=== PATIENT | male | born 1955 | race Caucasian/White ===

== ENCOUNTER 2021-06-26 05:14 | Observation (INO) ==
[2021-06-26 05:30] VITALS: BMI 34.2
[2021-06-26] MEDS ORDERED: ZOFRAN INJ 4 MG VIAL IVP ONE (05:50)
[2021-06-26] MEDS ORDERED: APRESOLINE INJ 20 MG VIAL IVP ONE (05:50)
[2021-06-26] MEDS ORDERED: NS 1,000 ML IV 1,000 ML IV STA (05:50)
[2021-06-26] MEDS ORDERED: CATAPRES TAB 0.1 MG PO ONE (05:50)
[2021-06-26] MEDS ORDERED: MORPHINE SULFATE INJ 4 MG IVP ONE (05:50)
--- NOTE | 2021-06-26 05:51 | DR.HTN ---
HPI Time Seen Time Seen by Provider: 06/26/21 05:47 Primary Care Physician Primary Care Physician: Dionicio Felton HPI Comment HPI Comment: PATIENT WITH A HISTORY OF TYPE 2 DIABETES, HYPERTENSION, CVA, COMPLAINS OF SEVERE HEADACHE SINCE 11PM LAST NIGHT. ADMITS TO BEING NONCOMPLAINT WITH HIS HYPERTENSIVE AND DIABETIC MEDICATIONS FOR MONTHS. HAS POLYDIPSIA AND POLYURIA. DENIES GAIT DISTURBANCE, SLURRED SPEECH, BLURRED VISION. ADMITS TO HAVE HAD EPISODES OF SLURRED SPEECH AND DYSARTHRIA PAST FEW YEARS. Complaints Chief Complaint Doctors Comments: HEADACHE Chief Complaint:: Headache, high blood pressure, pt admits to only taking his BP medication every now and then because it makes him feel bad. Reviewed Nurses Notes Reviewed: Yes Source History Provided: Patient Mode of Arrival Mode of Arrival: Ambulatory Timing Onset of Chief Complaint: 06/25/21 Severity Severity: Severe Context Circumstances: Spontaneous Onset and Ran out of Medication (NONCOMPLIANT WITH ALL MEDICATIONS.) History of: Hypertension Treatment of HTN Prior to Arrival: Noncompliant Associated Signs and Symptoms HTN Associated Signs and Symptoms: Headache Other History Other History: HISTORY OF CVA AND TIA'S IN THE PAST PMH PMH Past Medical History: Yes Past Medical History: Diabetes and Hypertension Past Surgical History: Yes Surgical History: Ortho Surgery Past Surgical History Comment: Rt shoulder, hernia Family History History of Family Medical Conditions: Yes Family Medical History: Diabetes Mellitus and DC Social History Alcohol Use: None Do you use any recreational Drugs:: No Lives Where: Home Infectious screening Have you traveled outside the country in the last 6 months?: No Isolation: Standard ROS Review of Systems Constitutional: No Symptoms Reported Eyes: No Symptoms Reported ENTM: No Symptoms Reported Respiratoy: No Symptoms Reported Cardiovascular: No Symptoms Reported Gastrointestinal/Abdominal: No Symptoms Reported Genitourinary: No Symptoms Reported Neurological: Headache Musculoskeletal: No Symptoms Reported Integumentary: No Symptoms Reported Hematologic/Lymphatic: No Symptoms Reported Endocrine: No Symptoms Reported Psychiatric: No Symptoms Reported All Other Systems: Reviewed and Negative PE Vital Signs Vitals: Temperature 97.4 F Pulse Rate 80 Respiratory Rate 18 Blood Pressure [Left Arm] 127/65 Blood Pressure 163/77 O2 Sat by Pulse Oximetry 95 General General Appearance: Alert, In No Apparent Distress and Anxious Head Head Exam: Normal Inspection and Atraumatic Eyes Eye exam: Normal Appearance, PERRL and EOMI Pupils: Regular, Round: Bilateral Sclera/Conjunctival: Normal Inspection: Bilateral ENT ENT Exam: Normal Exam Neck Neck Exam: Normal Inspection Chest Chest Inspection: Normal Inspection Respiratory Respiratory Exam: Bilateral: Clear to Auscultation Cardiovascular Cardiovascular Exam: Regular Rate and Normal Rhythm Abdominal Exam Abdominal Exam: Normal Inspection and Normal Bowel Sounds Extremities Extremities Exam: Normal Inspection and Full ROM Back Back Exam: Normal Inspection Neurologic Neurological Exam: Alert, Oriented X3 and CN II-XII Intact Patient Oriented To: Person, Place and Time Cranial Nerve Exam: EOM Function (II, III, IV, ): Normal Cerebellar Function: Normal Gait Motor Strength - LUE: 5/5 Motor Strength - RUE: 5/5 Motor Strength - LLE: 5/5 Motor Strength - RLE: 5/5 Psychiatric Psychiatric Exam: Normal Affect and Normal Mood Skin Skin Exam: Warm and Dry MDM Differential Diagnosis Differential Diagnosis: Hypertensive emergency and HTN encephalopathy Differential Diagnosis Comment: CVA, TIA, HYPERGLYCEMIA COURSE Treatment Treatment: IV NORMAL SALINE 250ML/HR, HYDRALAZINE 20MG IV, CLONIDINE 0.1MG ORALLY, ZOFRAN 4MG. MORPHINE 4MG IV, Reevaluation 1st: Improved (BLOOD PRESSURS IMPROVED TO BP 163/77) Consultation Call Returned: 07:00 Consultation Comments: DISCUSSED FINDINGS WITH DR REBOLLAR FOR OBSERVATION TO ICU ROR Labs Reviewed Laboratory Results Reviewed?: Yes Result Diagrams: 06/26/21 06:00 06/26/21 06:00 Laboratory: WBC 6.1 X10^3/uL (3.6-10.0) 06/26/21 06:00 RBC 4.92 X10^6/uL (4.7-6.0) 06/26/21 06:00 Hgb 15.3 g/dL (13.5-18.0) 06/26/21 06:00 Hct 43.4 % (42.0-54.0) 06/26/21 06:00 MCV 88.3 fL (80.0-100.0) 06/26/21 06:00 MCH 31.0 pg (27.0-34.0) 06/26/21 06:00 MCHC 35.1 g/dL (33.0-35.0) H 06/26/21 06:00 RDW 12.6 % (11.6-16.5) 06/26/21 06:00 Plt Count 182 X10^3/uL (150.0-450.0) 06/26/21 06:00 MPV 9.5 fL (7.4-11.0) 06/26/21 06:00 Neut % (Auto) 73.3 % (42.0-75.0) 06/26/21 06:00 Lymph % (Auto) 16.8 % (21.0-51.0) L 06/26/21 06:00 [place] % (Auto) 7.1 % (0.0-13.0) 06/26/21 06:00 Eos % (Auto) 1.7 % (0.9-2.9) 06/26/21 06:00 Baso % (Auto) 1.1 % (0.2-1.0) H 06/26/21 06:00 Neut # (Auto) 4.5 x10^3/uL (2.2-4.8) 06/26/21 06:00 Lymph # (Auto) 1.0 X10^3/uL (1.3-2.9) L 06/26/21 06:00 [place]s # (Auto) 0.4 x10^3/uL (0.3-0.8) 06/26/21 06:00 Eos # (Auto) 0.1 x10^3/uL (0.0-0.2) 06/26/21 06:00 Baso # (Auto) 0.1 X10^3/uL (0.0-0.1) 06/26/21 06:00 Absolute Nucleated RBC 0.1 /100WBC 06/26/21 06:00 PT 13.3 SECONDS (11.8-14.3) 06/26/21 06:00 INR Target Range - 06/26/21 06:00 INR 1.07 (0.8-1.3) 06/26/21 06:00 Sodium 130 mmol/L (136-145) L 06/26/21 06:00 Corrected Sodium 137 mmol/L (136-145) 06/26/21 06:00 Potassium 4.1 mmol/L (3.5-5.1) 06/26/21 06:00 Chloride 96 mmol/L (98-107) L 06/26/21 06:00 Carbon Dioxide 25.2 mmol/L (21-32) 06/26/21 06:00 BUN 17 mg/dL (7-18) 06/26/21 06:00 Creatinine 0.96 mg/dL (0.70-1.30) 06/26/21 06:00 Est GFR (MDRD) Af Amer > 60 (>60) 06/26/21 06:00 Est GFR (MDRD) Non-Af > 60 (>60) 06/26/21 06:00 Glucose 410 mg/dL (65-99) H 06/26/21 06:00 POC Glucose (mg/dL) 423 mg/dL (65-99) H 06/26/21 05:53 Calcium 9.0 mg/dL (8.5-10.1) 06/26/21 06:00 Corrected Calcium TNP 06/26/21 06:00 Magnesium 2.0 mg/dL (1.7-2.9) 06/26/21 06:00 Total Bilirubin 0.60 mg/dL (0.2-1.0) 06/26/21 06:00 AST 32 Units/L (15-37) 06/26/21 06:00 ALT 84 Units/L (12-78) H 06/26/21 06:00 Alkaline Phosphatase 126 Units/L (46-116) H 06/26/21 06:00 Troponin I < 0.02 ng/mL (0-1.5) 06/26/21 06:00 Total Protein 7.2 g/dL (6.4-8.2) 06/26/21 06:00 Albumin 3.7 g/dL (3.4-5.0) 06/26/21 06:00 Globulin 3.5 g/dL (2.5-4.5) 06/26/21 06:00 Albumin/Globulin Ratio 1.1 Ratio (1.1-2.1) 06/26/21 06:00 Acetone, Semi-Quant Negative (NEGATIVE) 06/26/21 06:00 XRAY XRAY Interpreted by: Radiologist (HEAD CT WITHOUT INTRAVENOUS CONTRAST - NO ACUTE INTRACRANIAL PROCESS) X-ray Results: PORTABLE CHEST XRAY - NO ACUTE INTRAPULMONARY PAROCESS EKG Rate: 89 [place]: Normal Rhythm: NSR Hypertrophy: LAE ST: Nonsp Opioid Opioid Risk Tool Age (Oziel box if 16-45): No History of Preadolescent Sexual Abuse: No Total: 0 Total Score Risk Category: Low Risk Copyright: Omar SLOAN predicting aberrant behaviors Diagnosis Discharge Problem: Hypertensive emergency, Hyperglycemia, Headache
[2021-06-26] MEDS ORDERED: NS 1,000 ML IV 1,000 ML ONE (05:55)
[2021-06-26] MEDS ORDERED: ZOFRAN INJ 4 MG VIAL ONE (05:58)
[2021-06-26] MEDS ORDERED: MORPHINE SULFATE INJ 4 MG ONE (05:58)
[2021-06-26] MEDS ORDERED: CATAPRES TAB 0.1 MG ONE (05:58)
[2021-06-26] MEDS ORDERED: APRESOLINE INJ 20 MG VIAL ONE (05:58)
[2021-06-26 06:15] LABS: BASOPHILS # (AUTO) 0.1 X10^3/uL (0.0-0.1); BASOPHILS % (AUTO) 1.1 % (0.2-1.0); EOSINOPHILS # (AUTO) 0.1 x10^3/uL (0.0-0.2); EOSINOPHILS % (AUTO) 1.7 % (0.9-2.9); HEMATOCRIT 43.4 % (42.0-54.0); HEMOGLOBIN 15.3 g/dL (13.5-18.0); LYMPHOCYTES % (AUTO) 16.8 % (21.0-51.0); MEAN CORPUSCULAR HGB CONC 35.1 g/dL (33.0-35.0); MEAN CORPUSCULAR VOLUME 88.3 fL (80.0-100.0); MEAN PLATELET VOLUME 9.5 fL (7.4-11.0); MONOCYTES # (AUTO) 0.4 x10^3/uL (0.3-0.8); MONOCYTES % (AUTO) 7.1 % (0.0-13.0); NEUTROPHILS # (AUTO) 4.5 x10^3/uL (2.2-4.8); NEUTROPHILS % (AUTO) 73.3 % (42.0-75.0); PLATELET COUNT 182 X10^3/uL (150.0-450.0); RED BLOOD COUNT 4.92 X10^6/uL (4.7-6.0); RED CELL DISTRIBUTION WIDTH 12.6 % (11.6-16.5); WHITE BLOOD COUNT 6.1 X10^3/uL (3.6-10.0)
[2021-06-26] MEDS ORDERED: NovoLIN R (or HumuLIN R) IV STA (06:32)
--- NOTE | 2021-06-26 06:33 | CT ---
HISTORYPT C/O HASTUDYBRAIN W/O CONCOMPARISONCT brain report only available from 11/08/2018.TECHNIQUEMultiple axial images of the head were performed from the skullbase to the vertex using standard departmental protocol. Sagittal and coronal reformatted images were performed. Dose reduction techniques including Automated Exposure Control (AEC) and adjustment of mA and kV were utilized.FINDINGSThe lateral ventricles and basilar cisterns are patent.No parenchymal mass or hematoma. Franz-white differentiation appears acutely preserved. Mild low attenuation change in the subcortical and deep supratentorial white matter.No extra-axial collection.The globes are intact.No air fluid levels in the paranasal sinuses. No paranasal sinus wall thickening or sclerosis. Mastoid air cells are clear.The calvarium is intact.IMPRESSIONNo acute intracranial abnormality. Mild presumed small vessel disease.Electronically signed by: Blake Merrill (Jun 26, 2021 06:32:06)
[2021-06-26 06:40] LABS: SERUM ACETONE NEGATIVE (NEGATIVE)
--- NOTE | 2021-06-26 06:41 | RAD ---
HISTORYPT C/O DYSPNEA. STATES IT IS DUE TO NOT TAKING BP MEDICATIONSSTUDYCHEST, 1 [id number]/11/2021.TECHNIQUEAP view of the chestFINDINGSThe cardiac and mediastinal contours are within normal limits. Lung apices are not completely within the field of view. The lungs are clear without focal consolidation or segmental collapse. No pleural effusion or pneumothorax. Soft tissue attenuation limits evaluation.IMPRESSIONNo acute pulmonary process within the field of view.Electronically signed by: Blake Merrill (Jun 26, 2021 06:39:41)
[2021-06-26 06:42] LABS: ALANINE AMINOTRANSFERASE 84 Units/L (12-78); ALBUMIN 3.7 g/dL (3.4-5.0); ALKALINE PHOSPHATASE 126 Units/L (46-116); ASPARTATE AMINO TRANSFERASE 32 Units/L (15-37); BLOOD UREA NITROGEN 17 mg/dL (7-18); CARBON DIOXIDE 25.2 mmol/L (21-32); CHLORIDE 96 mmol/L (98-107); COR NA(FOR HYPERGLY) 137 mmol/L (136-145); CREATININE 0.96 mg/dL (0.70-1.30); SODIUM 130 mmol/L (136-145); TOTAL PROTEIN 7.2 g/dL (6.4-8.2); TROPONIN I < 0.02 ng/mL (0-1.5); eGFR NON BLACK RACES > 60 (>60)
[2021-06-26] MEDS ORDERED: NovoLIN R (or HumuLIN R) ONE (06:46)
[2021-06-26] MEDS ORDERED: FIORICET TAB PO STA (06:52)
[2021-06-26] MEDS ORDERED: FIORICET TAB PO ONE (06:56)
[2021-06-26 07:20] LABS: BILIRUBIN,URINE NEGATIVE (NEGATIVE); BLOOD/HEMOGLOBIN,URINE NEGATIVE (NEGATIVE); GLUCOSE, URINE 4+ (NEGATIVE); KETONES,URINE 2+ (NEGATIVE); LEUKOCYTE ESTERASE ,URINE NEGATIVE (NEGATIVE); NITRITES,URINE NEGATIVE (NEGATIVE); PROTEIN,URINE NEGATIVE (NEGATIVE); UROBILINOGEN,URINE NORMAL (NORMAL)
[2021-06-26 07:32] LABS: APPEARANCE,URINE CLEAR (CLEAR); COLOR,URINE YELLOW (YELLOW)
[2021-06-26] MEDS ORDERED: CATAPRES-TTS-1 TD SCH (09:35)
[2021-06-26] MEDS ORDERED: VASOTEC INJ 2.5 MG VIAL IVP PRN (09:35)
[2021-06-26] MEDS ORDERED: NS 1,000 ML IV 1,000 ML IV SCH (09:35)
[2021-06-26] MEDS ORDERED: TYLENOL 325 MG TAB PO PRN (09:35)
[2021-06-26] MEDS: NovoLIN R (or HumuLIN R) SC PRN ×3 (11:40→20:23)
[2021-06-26] MEDS ORDERED: ATIVAN TAB 0.5 MG PO PRN (18:58)
[2021-06-26] MEDS ORDERED: FIORICET TAB PO PRN (19:28)
[2021-06-26] MEDS ORDERED: ZOFRAN INJ 4 MG VIAL IVP PRN (20:28)
[2021-06-26] MEDS: NORCO 5/325 MG TAB PO PRN (21:48)
[2021-06-26] MEDS ORDERED: PHENERGAN INJ 25 MG IM PRN (22:36)
[2021-06-27] MEDS: NORCO 5/325 MG TAB PO PRN (04:06)
[2021-06-27] MEDS: NovoLIN R (or HumuLIN R) SC PRN (05:45)
[2021-06-27 05:51] LABS: BASOPHILS # (AUTO) 0.1 X10^3/uL (0.0-0.1); BASOPHILS % (AUTO) 0.9 % (0.2-1.0); EOSINOPHILS # (AUTO) 0.1 x10^3/uL (0.0-0.2); EOSINOPHILS % (AUTO) 0.7 % (0.9-2.9); HEMATOCRIT 40.8 % (42.0-54.0); HEMOGLOBIN 14.3 g/dL (13.5-18.0); LYMPHOCYTES # (AUTO) 1.5 X10^3/uL (1.3-2.9); LYMPHOCYTES % (AUTO) 19.2 % (21.0-51.0); MEAN CORPUSCULAR HGB CONC 34.9 g/dL (33.0-35.0); MEAN CORPUSCULAR VOLUME 88.8 fL (80.0-100.0); MEAN PLATELET VOLUME 10.1 fL (7.4-11.0); MONOCYTES # (AUTO) 0.6 x10^3/uL (0.3-0.8); MONOCYTES % (AUTO) 7.4 % (0.0-13.0); NEUTROPHILS # (AUTO) 5.6 x10^3/uL (2.2-4.8); NEUTROPHILS % (AUTO) 71.8 % (42.0-75.0); PLATELET COUNT 184 X10^3/uL (150.0-450.0); RED CELL DISTRIBUTION WIDTH 12.5 % (11.6-16.5); WHITE BLOOD COUNT 7.8 X10^3/uL (3.6-10.0)
[2021-06-27 05:56] LABS: HEMOGLOBIN A1C 11.9 %
[2021-06-27 06:07] LABS: ALANINE AMINOTRANSFERASE 80 Units/L (12-78); ALBUMIN 3.3 g/dL (3.4-5.0); ALKALINE PHOSPHATASE 76 Units/L (46-116); ASPARTATE AMINO TRANSFERASE 42 Units/L (15-37); BLOOD UREA NITROGEN 16 mg/dL (7-18); CALCIUM 8.2 mg/dL (8.5-10.1); CARBON DIOXIDE 26.2 mmol/L (21-32); CHLORIDE 100 mmol/L (98-107); COR CA(FOR HYPOALB) 8.8 mg/dL (8.5-10.1); COR NA(FOR HYPERGLY) 136 mmol/L (136-145); CREATININE 0.87 mg/dL (0.70-1.30); SODIUM 133 mmol/L (136-145); TOTAL PROTEIN 6.4 g/dL (6.4-8.2); eGFR NON BLACK RACES > 60 (>60)
--- NOTE | 2021-06-27 09:18 | DR.CARTERS ---
Short Stay Summary - Admission Date Date of Admission: 06/26/21 - Discharge Date Discharge Date: 06/27/21 - Admission Diagnoses (1) Hypertensive emergency Status: Acute (2) Hyperglycemia Status: Acute (3) Headache Status: Acute - Hospital Course Hospital Course: TIME SPENT ON CLINICAL ASSESSMENT, REVIEWING LABS AND IMAGING, DECISION MAKING, AND DOCUMENTATION GREATER THAN 75 MINUTES. IS A 66 YEAR OLD PATIENT OF [facility]. HE PRESENTED TO THE ER WITH COMPLAINTS OF SEVERE HEADACHE AND ELEVATED BLOOD PRESSURE. HE DOES HAVE A HISTORY OF HYPERTENSION, DM II, AND CVA, BUT REPORTED BEING NON-COMPLIANT WITH ALL OF HIS MEDICATIONS. HE REPORTED THAT HE USUALLY FEELS WORSE AND WEAK WHEN HE TAKES IT. HE ADMITTED TO POLYDIPSIA AND POLYURIA. HE DENIED GAIT DISTURBANCE, SLURRED SPEECH, BLURRED VISION. HE RATED HEADACHE A 7/10 AND DESCRIBED IT THROBBING. ON ARRIVAL TO THE ER, VITALS WERE 97.4-70-20-94%-201/91. LABS WERE OBTAINED. ABNORMAL LAB VALUES INCLUDED THE FOLLOWING: SODIUM 130, CHLORIDE 96, GLUCOSE 410, ALT 84, ALK PHOS 126. URINALYSIS WAS UNREMARKABLE. URINE ACETONES NEGATIVE. COVID, INFLUENZA, AND RSV NEGATIVE. A BRAIN CT WAS OBTAINED AND REVEALED: No acute intracranial abnormality. Mild presumed small vessel disease. CHEST XRAY WAS OBTAINED AND REVEALED: The cardiac and mediastinal contours are within normal limits. Lung apices are not completely within the field of view. The lungs are clear without focal consolidation or segmental collapse. No pleural effusion or pneumothorax. Soft tissue attenuation limits evaluation. EKG REVEALED: SINUS RHYTHM WITH HR 89. IN THE ER, HE WAS GIVEN APRESOLINE 20MG IV X 1, CATAPRES 0.1MG PO X 1, MORPHINE 4MG IV X 1, A 500ML NORMAL SALINE BOLUS, ZOFRAN 4MG IV X 1, HUMULIN R 5 UNITS IV X 1, FIORICET 1 TAB X 1. BLOOD PRESSURE DECREASED TO 131/62. HE WAS ADMITTED TO THE HOSPTIAL FOR FURTHER EVALUATION AND TREATMENT OF HYPERTENSIVE EMERGENCY, ACUTE CEPHALGIA, AND HYPERGLYCEMIA. HE WAS STARTED ON NORMAL SALINE AT KVO, FIORICET 1 TABLET Q6H PRN, NORCO 5/325MG PO Q6H PRN, CATAPRES 0.1MG TD PATCH, VASOTEC 1.25MG IV Q6H PRN, HUMULIN R SLIDING SCALE, ATIVAN 0.5MG PO BID PRN, ZOFRAN 4MG IV Q4H PRN, AND PHENERGAN 25MG IM Q6H PRN. OTHERWISE, WE PLANNED TO FOLLOW UP WITH AM LABS AND CONTINUE TO MONITOR. ON MORNING ROUNDS, PATIENT IS ALERT AND ORIENTED, SITTING UP IN BED ON MORNING ROUNDS. HE DENIES HEADACHE OR OTHER COMPLAINTS THIS MORNING. BLOOD PRESSURE HAS BEEN STABLE THROUGHOUT THE NIGHT. ON EXAMINATION, HEART IS REGULAR IN RATE AND RHYHTM. BILATERAL LUNGS ARE CLEAR TO AUSCULTATION. ABDOMEN IS ROUND, SOFT, AND NON-TENDER WITH NORMAL BOWEL SOUNDS NOTED IN ALL QUADRANTS. HIS VITALS THIS MORNING ARE: 98.4-62-10-95%-122/61. LABS WERE OBTAINED. ABNORMAL LAB VALUES INCLUDE THE FOLLOWING: RBC 4.60, HCT 40.8, SODIUM 130, CHLORIDE 96, GLUCOSE 410, ALT 84, ALK PHOS 126. WE PLANNED FOR DISCHARGE. INSTRUCTIONS FOR MEDICATIONS AND FOLLOW UP WERE DISCUSSED WITH PATIENT AND HIS SPOUSE. THEY BOTH VERBALIZED UNDERSTANDING. HE WAS GIVEN NEW PRESCRIPTIONS FOR ECOTRIN 325MG PO DAILY, CLONIDINE 0.1MG/HR TD PATCH WEEKLY, FARXIGA 5MG PO DAILY, LISINOPRIL 10MG PO HS, ROSUVASTATIN 10MG PO HS, AND INSTRUCTED TO CONTINUE HIS OTHER HOME MEDICATIONS. HE WAS INSTRUCTED TO FOLLOW UP WITH US IN TWO WEEKS. PATIENT DISCHARGED HOME WITH SPOUSE IN STABLE, IMPROVED CONDITION. TIME SPENT ON CLINICAL ASSESSMENT, REVIEWING LABS AND IMAGING, DECISION MAKING, DISCHARGE INSTRUCTIONS, PREPARING DISCHARGE PAPERS, AND DOCUMENTATION GREATER THAN 75 MINUTES. - Discharge Medications Discharge Medications: Home Medication List glimepiride 4 mg PO BID 06/26/21 [History] liraglutide [Victoza 3-Mauri] 1.8 mg SUBCUT DAILY 06/26/21 [History] lorazepam 0.5 mg PO BID PRN 06/26/21 [History] aspirin [Ecotrin] 325 mg PO QDAY #90 tab 06/27/21 [Rx] clonidine 1 ea TD Q7D #5 ea 06/27/21 [Rx] dapagliflozin [Farxiga] 5 mg PO QAM #30 tab 06/27/21 [Rx] lisinopril 10 mg PO HS #30 tab 06/27/21 [Rx] rosuvastatin 10 mg PO HS #30 tab 06/27/21 [Rx] Prescriptions: aspirin [Ecotrin] Jer Ramachandran clonidine Jer Ramachandran dapagliflozin [Farxiga] Jer Ramachandran lisinopril Jer Ramachandran rosuvastatin Jer Ramachandran - Discharge Plan Disposition: HOME, SELF-CARE Condition: Stable Prescriptions: aspirin [Ecotrin] 325 mg PO QDAY #90 tab clonidine 1 ea TD Q7D #5 ea dapagliflozin [Farxiga] 5 mg PO QAM #30 tab lisinopril 10 mg PO HS #30 tab rosuvastatin 10 mg PO HS #30 tab - Follow up/Referrals Follow up/Referrals: Jer Ramachandarn [STAFF PHYSICIAN] - 2 WEEKS - Instructions Forms: Excuse From Work or School, Precautions for COVID, [facility], Patient Portal, Social Distancing
[2021-06-27 10:16] VITALS: BP 131/63
== END 2021-06-27 10:35 | disposition home or self-care (01) ==
LOC: ER 05:19 → ICU 05:19
PROVIDERS: ADMIT Internal Medicine; ATTEND Internal Medicine
DX: E11.65 Type 2 diabetes mellitus with hyperglycemia; R51.9 Headache, unspecified; I16.0 Hypertensive urgency; Z20.822 Contact with and (suspected) exposure to COVID-19

== ENCOUNTER 2025-06-17 00:02 | Observation (INO) ==
--- NOTE | 2025-06-17 00:53 | DR.WEAKNES ---
HPI Time Seen Time Seen by Provider: 06/17/25 00:37 Primary Care Physician Primary Care Physician: Louise Olmstead HPI Comment HPI Comment: present for at least over 12 hrs which slowly became weaker with difficulty in raising his left leg and left arm brought in by family to ER for evaluation Complaints Chief Complaint Doctors Comments: left sided weakness Chief Complaint:: Pt ambulatory in ed with complaints of left sided weakness. states the weakness has been going on for a few weeks, but it worsened today. Noted weakness to LT ARM and LT LEG. Source History Provided: Patient and Family Member Mode of Arrival Mode of Arrival: Ambulatory Timing Onset of Chief Complaint: 06/16/25 Symptom Onset: Known Onset of Symptoms Start Date: 06/16/25 Onset of Symptoms Start Time: 09:30 Duration Duration: Since Onset Duration: Hours Context Symptoms: Weakness History of: CVA Stroke Symptoms: Weakness of limb and Numbness of limbs Location Weakness Location: Left and Sided Associated Signs and Symptoms Associated Signs and Symptoms: None PMH PMH Past Medical History: Yes Past Medical History: CVA, Diabetes and Hypertension Past Surgical History: Yes Surgical History: Abdominal Surgery and Ortho Surgery Past Surgical History Comment: hernia repair, shoulder Family History History of Family Medical Conditions: Yes Family Medical History: Diabetes Mellitus and Hypertension Social History Does any household member use tobacco: No Alcohol Use: None Do you use any recreational Drugs:: No Lives With: Spouse and Family Lives Where: Home Infectious screening In the last 2 months have you had wt loss of >10#?: NO Have you had fever, night sweats or hemotysis?: No Have you traveled outside the country in the last 6 months?: No Isolation: Standard ROS Review of Systems Constitutional: Weakness Eyes: No Symptoms Reported ENTM: No Symptoms Reported Respiratoy: No Symptoms Reported Cardiovascular: No Symptoms Reported Gastrointestinal/Abdominal: No Symptoms Reported Genitourinary: No Symptoms Reported Neurological: Weakness Integumentary: No Symptoms Reported Hematologic/Lymphatic: No Symptoms Reported Endocrine: No Symptoms Reported Psychiatric: No Symptoms Reported PE Vital Signs Vitals: Vital Signs Temperature 97.9 F Pulse Rate 53 Pulse Rate 50 Pulse Rate 51 Pulse Rate 51 Pulse Rate 53 Pulse Rate 56 Pulse Rate 55 Pulse Rate 53 Pulse Rate 58 Pulse Rate 59 Pulse Rate 58 Respiratory Rate 20 Respiratory Rate 11 Respiratory Rate 15 Respiratory Rate 16 Respiratory Rate 14 Respiratory Rate 29 Respiratory Rate 17 Respiratory Rate 17 Respiratory Rate 13 Respiratory Rate 16 Respiratory Rate 20 Blood Pressure 180/77 Blood Pressure 159/71 Blood Pressure 188/81 Blood Pressure 183/80 Blood Pressure 180/75 O2 Sat by Pulse Oximetry 96 O2 Sat by Pulse Oximetry 96 O2 Sat by Pulse Oximetry 95 O2 Sat by Pulse Oximetry 95 O2 Sat by Pulse Oximetry 96 O2 Sat by Pulse Oximetry 96 O2 Sat by Pulse Oximetry 96 O2 Sat by Pulse Oximetry 96 O2 Sat by Pulse Oximetry 95 O2 Sat by Pulse Oximetry 96 O2 Sat by Pulse Oximetry 96 General Limitations: No Limitations General Appearance: Alert and Anxious Head Head Exam: Normal Inspection, Atraumatic and Normocephalic Eyes Eye exam: Normal Appearance, PERRL and EOMI ENT ENT Exam: Normal Exam and Mucous Membranes Moist Mouth Exam: Normal Inspection Neck Neck Exam: Normal Inspection and Full ROM Chest Chest Inspection: Normal Inspection and Symmetric Chest Wall Rise Respiratory Respiratory Exam: Bilateral: Clear to Auscultation Cardiovascular Cardiovascular Exam: +S1 and +S2 Abdominal Exam Abdominal Exam: Normal Inspection, Normal Bowel Sounds and Soft Other Exam Other Exam: left upper and lower ext weakness COURSE Treatment Treatment: CVA with left hemiparesis,teleneurology ROR Labs Reviewed 06/17/25 00:38 06/17/25 00:38 Laboratory: WBC 6.2 X10^3/uL (3.6-10.0) 06/17/25 00:38 RBC 4.75 X10^6/uL (4.7-6.0) 06/17/25 00:38 Hgb 14.7 g/dL (13.5-18.0) 06/17/25 00:38 Hct 43.1 % (42.0-54.0) 06/17/25 00:38 MCV 90.7 fL (80.0-100.0) 06/17/25 00:38 MCH 30.9 pg (27.0-34.0) 06/17/25 00:38 MCHC 34.1 g/dL (33.0-35.0) 06/17/25 00:38 RDW 13.2 % (11.6-16.5) 06/17/25 00:38 Plt Count 167 X10^3/uL (150.0-450.0) 06/17/25 00:38 MPV 9.9 fL (7.4-11.0) 06/17/25 00:38 Neut % (Auto) 54.6 % (42.0-75.0) 06/17/25 00:38 Lymph % (Auto) 31.8 % (21.0-51.0) 06/17/25 00:38 Esmeralda % (Auto) 10.8 % (0.0-13.0) 06/17/25 00:38 Eos % (Auto) 2.1 % (0.9-2.9) 06/17/25 00:38 Baso % (Auto) 0.7 % (0.2-1.0) 06/17/25 00:38 Neut # (Auto) 3.4 x10^3/uL (2.2-4.8) 06/17/25 00:38 Lymph # (Auto) 2.0 X10^3/uL (1.3-2.9) 06/17/25 00:38 Esmeralda # (Auto) 0.7 x10^3/uL (0.3-0.8) 06/17/25 00:38 Eos # (Auto) 0.1 x10^3/uL (0.0-0.2) 06/17/25 00:38 Baso # (Auto) 0.0 X10^3/uL (0.0-0.1) 06/17/25 00:38 Absolute Nucleated RBC 0.3 /100WBC 06/17/25 00:38 PT 13.3 SECONDS (11.8-14.3) 06/17/25 00:38 INR Target Range - 06/17/25 00:38 INR 1.00 (0.8-1.3) 06/17/25 00:38 APTT 31.2 SECONDS (22.9-36.5) 06/17/25 00:38 PTT Comment - 06/17/25 00:38 Fibrinogen 314 mg/dL (239-489) 06/17/25 00:38 Sodium 143 mmol/L (136-145) 06/17/25 00:38 Corrected Sodium 146 mmol/L (136-145) H 06/17/25 00:38 Potassium 4.1 mmol/L (3.5-5.1) 06/17/25 00:38 Chloride 106 mmol/L (98-107) 06/17/25 00:38 Carbon Dioxide 27.7 mmol/L (21-32) 06/17/25 00:38 BUN 19 mg/dL (7-18) H 06/17/25 00:38 Creatinine 1.12 mg/dL (0.70-1.30) 06/17/25 00:38 Est GFR (MDRD) Af Amer > 60 (>60) 06/17/25 00:38 Est GFR (MDRD) Non-Af > 60 (>60) 06/17/25 00:38 Glucose 234 mg/dL (65-99) H 06/17/25 00:38 POC Glucose (mg/dL) 250 mg/dL (65-99) H 06/17/25 00:17 Calcium 8.9 mg/dL (8.5-10.1) 06/17/25 00:38 Corrected Calcium TNP 06/17/25 00:38 Total Bilirubin 0.50 mg/dL (0.2-1.0) 06/17/25 00:38 AST 16 Units/L (15-37) 06/17/25 00:38 ALT 24 Units/L (12-78) 06/17/25 00:38 Alkaline Phosphatase 80 Units/L (46-116) 06/17/25 00:38 Creatine Kinase 150 Units/L (39-308) 06/17/25 00:38 Troponin I High Sens 10.6 ng/L (4.0-60.0) 06/17/25 00:38 Total Protein 6.7 g/dL (6.4-8.2) 06/17/25 00:38 Albumin 3.7 g/dL (3.4-5.0) 06/17/25 00:38 Globulin 3.0 g/dL (2.5-4.5) 06/17/25 00:38 Albumin/Globulin Ratio 1.2 Ratio (1.1-2.1) 06/17/25 00:38 Triglycerides 149 mg/dL (0-150) 06/17/25 00:38 Cholesterol 119 mg/dL (0-200) 06/17/25 00:38 LDL Cholesterol, Calc 45 mg/dL (0-100) 06/17/25 00:38 HDL Cholesterol 44 mg/dL (40-60) 06/17/25 00:38 Cholesterol/HDL Ratio 2.7 (0.0-5.0) 06/17/25 00:38 Specimen Type Clean catch urine 06/17/25 02:10 Urine Color Pale yellow (YELLOW) 06/17/25 02:10 Urine Appearance Clear (CLEAR) 06/17/25 02:10 Urine pH 5.0 (5.0 - 8.0) 06/17/25 02:10 Ur Specific [place] 1.015 (1.000-1.030) 06/17/25 02:10 Urine Protein 1+ (NEGATIVE) 06/17/25 02:10 Urine Glucose (UA) 4+ (NEGATIVE) 06/17/25 02:10 Urine Ketones Negative (NEGATIVE) 06/17/25 02:10 Urine Blood Negative (NEGATIVE) 06/17/25 02:10 Urine Nitrite Negative (NEGATIVE) 06/17/25 02:10 Urine Bilirubin Negative (NEGATIVE) 06/17/25 02:10 Urine Urobilinogen Normal (NORMAL) 06/17/25 02:10 Ur Leukocyte Esterase Negative (NEGATIVE) 06/17/25 02:10 Urine RBC None seen /HPF (0-3) 06/17/25 02:10 Urine WBC None seen /HPF (0-5) 06/17/25 02:10 Ur Squamous Epith Cells Rare /HPF (NEGATIVE) 06/17/25 02:10 Urine Bacteria Negative /HPF (NEGATIVE) 06/17/25 02:10 Ur Culture Indicated? No/not indicated 06/17/25 02:10 Opioid Opioid Risk Tool Age (Oziel box if 16-45): No History of Preadolescent Sexual Abuse: No Total: 0 Total Score Risk Category: Low Risk Copyright: Omar SLOAN predicting aberrant behaviors Discharge Plan Diagnosis Discharge Problem: Acute cerebrovascular accident (CVA) due to ischemia, Acute left hemiparesis, HTN (hypertension) Discharge Plan Patient Disposition: 09 ADMITTED INPATIENT Condition: Stable Prescriptions: No Action buspirone 10 mg tablet 10 mg PO BID PRN rosuvastatin 20 mg tablet 20 mg PO QPM dapagliflozin propanediol [Farxiga] 10 mg tablet 10 mg PO QDAY lisinopril 10 mg tablet 10 mg PO BID Rx Instructions: take one tablet at bedtime glimepiride 4 mg Tablet 4 mg PO BID Patient Comments: "only takes every now and then" Health Concerns: Post Hospitalization: new medications and changes needed to prevent readmission or further decline. Pt educated and given instructions on all concerns. Plan of Treatment: Continue with present treatment and follow up plan. Pt is to keep follow up appointment as instructed and take medications as ordered. Orders to Discharge Patient Discharge Orders: Transfer (Routine); Ordered 06/17/25 Ordered By: Zack Mars Follow ups/Referrals Follow ups/Referrals: LOUISE OLMSTEAD [Primary Care Provider, Unknown] - 3 days Instructions Stand Alone Forms: Find Help Web Site, Post Hospital Follow Up Care Print Language: GEORGIAN Provider Note Additional Notes left sided weakness upper and lower ext .not candidate for thrombolytic therapy .CT head neg for bleed ,CTA brain and CTA for carotid neg for significant atherosclerotic changes, cardiac enzymes neg .Pt was evaluated by telehealth neurologist Dr Baxter ..Spoke with dr Ta agreed to have patient admitted for MRI head ,swallow study and ot/pt evaluation and maintain bp less than 180 systolic and start on duel antiplatelet therapy
[2025-06-17 00:54] LABS: INR 1.00 (0.8-1.3)
--- NOTE | 2025-06-17 00:55 | TELESTROKE ---
Tele[facility]Specialist Consult Date of Consult Date of Exam: 06/17/25 Time of Arrival to the ED: 00:02 Allergies Allergies Allergy/AdvReac Type Severity Reaction Status Date / Time No Known Drug Allergies Allergy Verified 06/17/25 00:29 Vital Signs Vital Signs: Temp Pulse Resp BP Pulse Ox O2 Del Method 06/17/25 00:03 97.9 F 58 L 20 180/75 96 Room Air History of Present Illness History of Present Illness: [facility] Tele[facility]urology Consult Services Patient Name:Baltazar Sahu Date of :1955 Identification Number: Date of Service:06/17/2025 00:11:41 Diagnosis:I63.89 - Cerebrovascular accident (CVA) due to other mechanism ([facility]) I69.354 - Hemiplegia 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 In setting of presentation, principal differential includes either an acute ischemic stroke to the R hemisphere potentiating his subtle underlying L hemiparesis vs a recrudescence of his chronic stroke symptoms and worsening his L sided weakness. For now, recommend empirically treating as an acute stroke until proven otherwise, and would favor admission for stroke workup and aggressive antiplatelet therapy moving forward. Our recommendations are outlined below. Recommendations: Stroke/Telemetry Floor Neuro Checks (Q4) Bedside Swallow Eval DVT Prophylaxis IV Fluids, Normal Saline Head of Bed 30 Degrees Euglycemia and Avoid Hyperthermia (PRN Acetaminophen) Antihypertensives PRN if Blood pressure is greater than 180/110 or there is a concern for End organ damage/contraindications for permissive HTN MRI brain wo contrast Infectious, cardiac, metabolic workup per primary team Follow up CTA head/neck final read Lipid panel, TSH, A1C, B12 Transthoracic Echo PT/OT/PAINTER APPRENTICE eval Sign Out: Discussed with Emergency Department Provider Advanced Imaging: Advanced imaging has been ordered. Results pending. Metrics: Last Known Well: 06/16/2025 09:30:00 Dispatch Time: 06/17/2025 00:11:41 Arrival Time: 06/17/2025 00:02:00 Initial Response Time: 06/17/2025 00:15:24Symptoms: Acute on chronic L sided weakness. Initial patient interaction: 06/17/2025 00:19:15 NIHSS Assessment Completed: 06/17/2025 00:24:03Patient is not a candidate for Thrombolytic. Thrombolytic Medical Decision: 06/17/2025 00:24:04Patient was not deemed candidate for Thrombolytic because of following reasons: LKW outside 4.[address] Head: I personally reviewed all the CT images that were available to me and it showed: a chronic R basal ganglia ischemic stroke with no blood products or early ischemic changes Primary Provider Notified of Diagnostic Impression and Management Plan on: 06/17/2025 00:48:07 History of Present Illness:Patient is a 70 year old Male. Patient was brought by private transportation with symptoms of Acute on chronic L sided weakness. 70YOM with a PMHx of HTN, HLD, CAD, DM2, previous ischemic stroke several years prior with minimal residual L sided weakness, presenting to the [facility] ED in the setting of acute onset significant worsening L sided weakness. Per patient, symptom onset shortly after 0930 on 06/16, at which point patient noticed that his L side became significantly weaker, with difficulty raising his L leg and dragging of his L foot as well as trouble raising his L arm. Patient admits to mild residual weakness following his stoke in 2021, yet notes that these symptoms are profoundly worse than even his initial stroke symptoms. Denies any active headache with no recent trauma or falls. Of note, patient's admits to generalized weakness over the course of the past month, yet today's symptoms are distinctly different with notable laterality on his L side. Notes worsening peripheral vision on the L side yet denies any changes in speech. Past Medical History: Hypertension Hyperlipidemia Medications: No Anticoagulant use Antiplatelet use:[id number] Reviewed EMR for current medications Allergies: Reviewed Social History: Patient Is: Drug Use: No Family History: There is no family history of premature cerebrovascular disease pertinent to this consultation ROS : 14 Points Review of Systems was performed and was negative except mentioned in HPI. Past Surgical History: There Is No Surgical History Contributory To Todays Visit Examination: BP(180/75),Pulse(58), 1A: Level of Consciousness - Alert; keenly responsive+ 0 1B: Ask Month and Age - Both Questions Right+ 0 1C: Blink Eyes & Squeeze Hands - Performs Both Tasks+ 0 2: Test Horizontal Extraocular Movements - Normal+ 0 3: Test Visual [place] - No Visual Loss+ 0 4: Test Facial Palsy (Use Grimace if Obtunded) - Minor paralysis (flat nasolabial fold, smile asymmetry)+ 1 5A: Test Left Arm Motor Drift - Drift, hits bed+ 2 5B: Test Right Arm Motor Drift - No Drift for 10 Seconds+ 0 6A: Test Left Leg Motor Drift - Drift, but doesn't hit bed+ 1 6B: Test Right Leg Motor Drift - No Drift for 5 Seconds+ 0 7: Test Limb Ataxia (FNF/Heel-Obrien) - No Ataxia+ 0 8: Test Sensation - Normal; No sensory loss+ 0 9: Test Language/Aphasia - Normal; No aphasia+ 0 10: Test Dysarthria - Normal+ 0 11: Test Extinction/Inattention - Visual/tactile/auditory/spatial/personal inattention+ 1 NIHSS Score:5 NIHSS Free Text :Spatial inattention with stroke cards, only regards L side of card at any given time Pre-Morbid Modified Sp Scale:1 Points = No significant disability despite symptoms; able to carry out all usual duties and activities Spoke with :Dr. Mars This consult was conducted in real time using interactive audio and video technology. Patient was informed of the technology being used for this visit and agreed to proceed. Patient located in hospital and provider located at home/office setting. Patient is being evaluated for possible acute neurologic impairment and high probability of imminent or life-threatening deterioration. I spent total of 30 minutes providing care to this patient, including time for face to face visit via telemedicine, review of medical records, imaging studies and discussion of findings with providers, the patient and/or family. Dr Hieu Baxter [facility] For Inpatient follow-up with [facility] physician please call [facility] at . As we are not an outpatient service for any post hospital discharge needs please contact the hospital for assistance. If you have any questions for the [facility] physicians or need to reconsult for clinical or diagnostic changes please contact us via [facility] at . Non-radiologist review of imaging performed to assist with emergent clinical decision-making. Remote physician workstations do not possess the same resolution, calibration, or diagnostic capabilities as hospital-based radiology reading stations, and formal radiologist read is necessary. Signature :Hieu Baxter Medical Decision Making 06/17/25 00:38 06/17/25 00:38 Labs: Laboratory Results - last 24 hr 06/17/25 00:17 POC Glucose (mg/dL) 250 H
[2025-06-17 00:59] LABS: MEAN PLATELET VOLUME 9.9 fL (7.4-11.0); RED CELL DISTRIBUTION WIDTH 13.2 % (11.6-16.5)
[2025-06-17 01:00] LABS: CHOL/HDL RATIO 2.7 (0.0-5.0); COR NA(FOR HYPERGLY) 146 mmol/L (136-145); CREATININE 1.12 mg/dL (0.70-1.30); eGFR NON BLACK RACES > 60 (>60)
[2025-06-17] MEDS: ASPIRIN PO ONE (01:37)
[2025-06-17] MEDS: PLAVIX PO ONE (01:38)
--- NOTE | 2025-06-17 01:38 | EKG ---
Test Reason : left sided weakness Blood Pressure : */* mmHG Vent. Rate : 58 BPM Atrial Rate : 58 BPM P-R Int : 210 ms QRS Dur : 90 ms QT Int : 454 ms P-R-T Axes : 42 -26 104 degrees QTc Int : 445 ms Sinus bradycardia with 1st degree AV block Abnormal QRS-T angle, consider primary T wave abnormality Abnormal ECG No previous ECGs available Confirmed by Sascha Segovia MD ([id number]) on 06/17/2025 7:20:36 AM Referred By: Confirmed By: Sascha Segovia MD
--- NOTE | 2025-06-17 02:15 | CT ---
EXAM: CT HEAD WITHOUT CONTRAST HISTORY: LEFT SIDE WEAKNESS, HX OF CVA; CVA, HTN, DM SX: ABDOMEN, HERNIA, SHOULDER COMPARISON: None. TECHNIQUE: Axial CT images were obtained through the brain without contrast. All CT scans at this facility use dose modulation, iterative reconstruction, and/or weight based dosing when appropriate to reduce radiation dose to as low as reasonably achievable. FINDINGS: BRAIN: There is moderate diffuse atrophy with proportionate enlargement of the cerebral sulci and ventricular system. Decreased attenuation in the periventricular white matter is compatible with but not specific for chronic small vessel ischemic changes, significantly progressed from previous exam. There is a focal area of low attenuation consistent with gliosis in the right upper parietal region.. No evidence of acute infarct intra or extraaxial hemorrhage mass effect or hydrocephalus. CALVARIUM: Normal ADDITIONAL FINDINGS: The visualized paranasal sinuses and mastoid air cells are clear. Orbits are grossly unremarkable. IMPRESSION: No evidence of acute intracranial process. There is moderate diffuse atrophy with proportionate enlargement of the cerebral sulci and ventricular system. Decreased attenuation in the periventricular white matter is compatible with but not specific for chronic small vessel ischemic changes, significantly progressed from previous exam. There is a focal area of low attenuation consistent with gliosis in the right upper parietal region.. THIS IS AN ELECTRONICALLY VERIFIED FINAL REPORT 06/17/2025 2:11 AM - Electronically signed by Tristen Hurtado MD
[2025-06-17 02:30] LABS: BLOOD/HEMOGLOBIN,URINE NEGATIVE (NEGATIVE); LEUKOCYTE ESTERASE ,URINE NEGATIVE (NEGATIVE); NITRITES,URINE NEGATIVE (NEGATIVE)
[2025-06-17 02:40] LABS: APPEARANCE,URINE CLEAR (CLEAR); SQUAMOUS EPITHELIAL CELL,UR RARE /HPF (NEGATIVE)
--- NOTE | 2025-06-17 02:45 | CT ---
EXAM: CT ARTERIOGRAM HEAD WITH CONTRAST AND 3D REFORMATIONS HISTORY: LEFT SIDED WEAKNESS ; CVA, HTN, DM . COMPARISON: None. TECHNIQUE: Axial CTA images were obtained from the skull base through the vertex of the brain after the intravenous administration of contrast. Coronal and sagittal reformatted images were included. 3D reconstructions were performed with concurrent physician supervision at a separate independent workstation and MIP images were also performed. When appropriate, NASCET criteria was used for the estimation of stenosis. All CT scans at this facility use dose modulation, iterative reconstruction, and/or weight based dosing when appropriate to reduce radiation dose to as low as reasonably achievable. FINDINGS: [place] OF PLATA: There is preserved enhancement of the anterior and posterior circulation without evidence of occlusion flow-limiting stenosis aneurysm or malformation. BRAIN: Enhancing cystic lesion in the region of the right internal capsule and basal ganglia measuring 2.8 x 1.6 cm. Differential considerations would include cystic neoplasm versus potential infection and cerebral abscess. Recommend correlation with MRI brain. BONES: Within normal limits. IMPRESSION: CTA of the brain is within normal limits. No evidence of large vessel occlusion or flow limiting stenosis. Enhancing cystic lesion in the region of the right internal capsule and basal ganglia measuring 2.8 x 1.6 cm. Differential considerations would include cystic neoplasm versus potential infection and cerebral abscess. Recommend correlation with MRI brain. THIS IS AN ELECTRONICALLY VERIFIED FINAL REPORT 06/17/2025 2:41 AM - Electronically signed by Tristen Hurtado MD
--- NOTE | 2025-06-17 02:54 | CT ---
EXAM: CT ARTERIOGRAM NECK WITH CONTRAST AND 3D REFORMATIONS HISTORY: LEFT SIDED WEAKNESS; CVA, HTN, DM . COMPARISON: None. TECHNIQUE: Axial CTA images were obtained from the aortic arch through the skull base after uneventful administration of contrast. Coronal, sagittal as well as 3D reformations were post processed on an independent workstation. When appropriate, NASCET criteria was used for the estimation of stenosis. All CT scans at this facility use dose modulation, iterative reconstruction, and/or weight based dosing when appropriate to reduce radiation dose to as low as reasonably achievable. FINDINGS: Left carotid: No evidence of focal stenosis or occlusion. Moderate atherosclerotic disease is present. Right carotid: No evidence of focal stenosis or occlusion. Moderate atherosclerotic disease is present. Vertebral arteries: No evidence of focal stenosis or occlusion. Aortic arch: No evidence of focal plaque or great vessel occlusion. BONES: Normal ADDITIONAL FINDINGS: None IMPRESSION: No evidence of focal stenosis or occlusion in the carotid or vertebral arteries. THIS IS AN ELECTRONICALLY VERIFIED FINAL REPORT 06/17/2025 2:51 AM - Electronically signed by Tristen Hurtado MD
[2025-06-17] MEDS ORDERED: OFIRMEV IV 1000 MG VIAL 1,000 MG/100 ML VIAL IV PRN (04:50)
[2025-06-17 04:51] VITALS: BMI 34.8
[2025-06-17 05:21] LABS: MEAN PLATELET VOLUME 9.8 fL (7.4-11.0); RED CELL DISTRIBUTION WIDTH 13.0 % (11.6-16.5)
[2025-06-17 05:24] LABS: TSH (3RD GENERATION) 4.134 uIU/mL (0.358-3.74)
[2025-06-17] MEDS: NS 1,000 ML IV 1,000 ML IV SCH (05:25)
[2025-06-17 05:37] LABS: COR NA(FOR HYPERGLY) 145 mmol/L (136-145); CREATININE 1.01 mg/dL (0.70-1.30); eGFR NON BLACK RACES > 60 (>60)
--- NOTE | 2025-06-17 07:00 | RAD ---
EXAMINATION: CHEST, 1 VIEW HISTORY: LEFT SIDED WEAKNESS ; CVA, HTN, DM SX: SHOULDER, HERNIA . COMPARISON STUDY: Chest x-ray 01/07/2023 TECHNIQUE: Single frontal view of the chest FINDINGS: Lungs are expanded. Mild cardiac silhouette enlargement. Normal pulmonary vascular pattern. CP angles are sharp. Bones are intact. IMPRESSION: Mild cardiac silhouette enlargement. THIS IS AN ELECTRONICALLY VERIFIED FINAL REPORT 06/17/2025 6:57 AM - Electronically signed by Leonora Morgan MD
[2025-06-17] MEDS: NS 100 ML IV 100 ML ONE (08:22)
[2025-06-17] MEDS: PLAVIX ONE (08:23)
[2025-06-17] MEDS: ASPIRIN ONE (08:23)
[2025-06-17] MEDS: OMNIPAQUE 350 mg/mL 100 mL BTL 100 ML ONE (08:23)
[2025-06-17] MEDS: FARXIGA PO SCH ×2 (08:24→11:46)
[2025-06-17] MEDS: AMARYL TAB 4 MG PO SCH (08:24)
[2025-06-17] MEDS: ZESTRIL TAB 40 MG PO SCH (10:22)
[2025-06-17] MEDS: MULTIHANCE INJ VIAL ONE (10:28)
--- NOTE | 2025-06-17 10:35 | MRI ---
EXAM: MRI ORBIT WITH AND WITHOUT CONTRAST HISTORY: STROKE SYMPTOMS/ HX OF STROKE/ VISION ISSUES IN LEFT EYE CONTRAST-MULTIHANCE 20CC RIGHT AC ; . COMPARISON: CT and CTA from same date; CT dated 06/26/2021 TECHNIQUE: Multiplanar multisequence MRI of the ORBIT was performed with and without contrast. Informed written consent was obtained from the patient prior to contrast administration. FINDINGS: No enhancing intraorbital abnormalities. Symmetric optic nerves and extraocular muscles. Globes are intact without abnormal signal or enhancement. In the right basal ganglia, there is a 2.7 x 1.3 cm T1/T2 hyperintense area with mild surrounding edema. There is associated internal restricted diffusion. Mild peripheral enhancement. Moderate cerebral atrophy and chronic microvascular white matter disease. No evidence of extra-axial fluid collection. No mass effect or midline shift. Major intracranial flow voids are preserved. Mild paranasal sinus mucosal thickening. Mastoid air cells are well-aerated. IMPRESSION: 1. Right basal ganglia 2.7 x 1.3 cm area with intrinsic T1 signal, most compatible with late subacute parenchymal infarction. There is mild associated peripheral enhancement with internal restricted diffusion. 2. Moderate cerebral atrophy and chronic microvascular white matter disease. 3. No acute intraorbital abnormality. THIS IS AN ELECTRONICALLY VERIFIED FINAL REPORT 06/17/2025 10:32 AM - Electronically signed by Willie Malcolm MD
--- NOTE | 2025-06-17 10:37 | DR.H&P ---
H&P History & Physical for Day of: H&P Date: 06/17/25 Chief Complaint Chief Complaint: left sided weakness History of Present Illness History of Present Illness: Patient is a 70y/o male with a PMH of CVA, Uncontrolled Type 2 DM, HTN and HLD presented with worsening left sided weakness and vision changes. He has residual left sided upper and lower ext weakness from CVA 3 years ago. He noticed yesterday that it was worse so came to the ER. Work- up included tele-neuro consult, CT-brain did not show any acute changes, cystic lesion was noted, MRI recommended. CTA head and neck was negative for any stenosis. Patient was started on asa/plavix and admitted for further management. He states left sided weakness has improved now. He seems to be back at his baseline. Denies any changes in speech or trouble swallowing. He still has some vision changes but reports that has been ongoing since his past stroke. His A1C is > 10. MRI-brain pending. Labs/imaging reviewed: - WBC 5.9 Hgb 14.3 K 3.8 Cr 1.01 -CT-brain, CTA head & neck reviewed Plan: Admit to ICU with stroke protocol, speech consult, PT/OT pending. Follow MRI results. Continue asa/plavix andd statin. Order Echo. Follow neuro recommendations. Continue neuro checks. Resume home meds as appropriate. Insulin SSI. Replace electrolytes as per protocol. Monitor AM labs/imaging. Time spent for clinical assessment, reviewing labs/imaging, physical exam, decision making and documentation greater than 45 mins. Past Medical History Past Medical History: CVA, Diabetes and Hypertension Past Surgical History Surgical History: Ortho Surgery and Other Family History Family Medical History: Diabetes Mellitus and Hypertension Social History Does any household member use tobacco: No Alcohol Use: None Drug Use: None Medications Home Medications: Home Medications Medication Instructions Recorded Confirmed Type glimepiride 4 mg tablet 4 mg PO BID 06/26/21 5 History buspirone 10 mg tablet 10 mg PO BID PRN 06/17/25 History dapagliflozin propanediol 10 mg 10 mg PO QDAY 06/17/25 06/17/25 History tablet (Farxiga) lisinopril 10 mg tablet 10 mg PO BID 06/17/25 History rosuvastatin 20 mg tablet 20 mg PO QPM cholesterol 06/0106/17/25 History Allergies Allergies Allergy/AdvReac Type Severity Reaction Status Date / Time No Known Drug Allergies Allergy Verified 06/17/25 00:29 Labs 06/17/25 04:45 06/17/25 04:45 Labs: Laboratory WBC 5.9 X10^3/uL (3.6-10.0) 06/17/25 04:45 RBC 4.64 X10^6/uL (4.7-6.0) L 06/17/25 04:45 Hgb 14.3 g/dL (13.5-18.0) 06/17/25 04:45 Hct 41.6 % (42.0-54.0) L 06/17/25 04:45 MCV 89.7 fL (80.0-100.0) 06/17/25 04:45 MCH 30.9 pg (27.0-34.0) 06/17/25 04:45 MCHC 34.4 g/dL (33.0-35.0) 06/17/25 04:45 RDW 13.0 % (11.6-16.5) 06/17/25 04:45 Plt Count 164 X10^3/uL (150.0-450.0) 06/17/25 04:45 MPV 9.8 fL (7.4-11.0) 06/17/25 04:45 Neut % (Auto) 56.2 % (42.0-75.0) 06/17/25 04:45 Lymph % (Auto) 31.4 % (21.0-51.0) 06/17/25 04:45 [place] % (Auto) 9.3 % (0.0-13.0) 06/17/25 04:45 Eos % (Auto) 2.2 % (0.9-2.9) 06/17/25 04:45 Baso % (Auto) 0.9 % (0.2-1.0) 06/17/25 04:45 Neut # (Auto) 3.3 x10^3/uL (2.2-4.8) 06/17/25 04:45 Lymph # (Auto) 1.9 X10^3/uL (1.3-2.9) 06/17/25 04:45 [place] # (Auto) 0.6 x10^3/uL (0.3-0.8) 06/17/25 04:45 Eos # (Auto) 0.1 x10^3/uL (0.0-0.2) 06/17/25 04:45 Baso # (Auto) 0.1 X10^3/uL (0.0-0.1) 06/17/25 04:45 Absolute Nucleated RBC 0.7 /100WBC 06/17/25 04:45 PT 13.3 SECONDS (11.8-14.3) 06/17/25 00:38 INR Target Range - 06/17/25 00:38 INR 1.00 (0.8-1.3) 06/17/25 00:38 APTT 31.2 SECONDS (22.9-36.5) 06/17/25 00:38 PTT Comment - 06/17/25 00:38 Fibrinogen 314 mg/dL (239-489) 06/17/25 00:38 Sodium 143 mmol/L (136-145) 06/17/25 04:45 Corrected Sodium 145 mmol/L (136-145) 06/17/25 04:45 Potassium 3.8 mmol/L (3.5-5.1) 06/17/25 04:45 Chloride 107 mmol/L (98-107) 06/17/25 04:45 Carbon Dioxide 27.5 mmol/L (21-32) 06/17/25 04:45 BUN 18 mg/dL (7-18) 06/17/25 04:45 Creatinine 1.01 mg/dL (0.70-1.30) 06/17/25 04:45 Est GFR (MDRD) Af Amer > 60 (>60) 06/17/25 04:45 Est GFR (MDRD) Non-Af > 60 (>60) 06/17/25 04:45 Glucose 193 mg/dL (65-99) H 06/17/25 04:45 POC Glucose (mg/dL) 178 mg/dL (65-99) H 06/17/25 05:29 Hemoglobin A1c 10.9 % 06/17/25 04:45 Calcium 8.7 mg/dL (8.5-10.1) 06/17/25 04:45 Corrected Calcium TNP 06/17/25 04:45 Total Bilirubin 0.60 mg/dL (0.2-1.0) 06/17/25 04:45 AST 11 Units/L (15-37) L 06/17/25 04:45 ALT 21 Units/L (12-78) 06/17/25 04:45 Alkaline Phosphatase 69 Units/L (46-116) 06/17/25 04:45 Creatine Kinase 150 Units/L (39-308) 06/17/25 00:38 Troponin I High Sens 10.6 ng/L (4.0-60.0) 06/17/25 00:38 Total Protein 6.3 g/dL (6.4-8.2) L 06/17/25 04:45 Albumin 3.5 g/dL (3.4-5.0) 06/17/25 04:45 Globulin 2.8 g/dL (2.5-4.5) 06/17/25 04:45 Albumin/Globulin Ratio 1.3 Ratio (1.1-2.1) 06/17/25 04:45 Triglycerides 149 mg/dL (0-150) 06/17/25 00:38 Cholesterol 119 mg/dL (0-200) 06/17/25 00:38 LDL Cholesterol, Calc 45 mg/dL (0-100) 06/17/25 00:38 HDL Cholesterol 44 mg/dL (40-60) 06/17/25 00:38 Cholesterol/HDL Ratio 2.7 (0.0-5.0) 06/17/25 00:38 Vitamin B12 324 pg/mL (193-986) 06/17/25 04:45 Free T4 1.22 ng/dL (0.76-1.46) 06/17/25 04:45 TSH 3rd Generation 4.134 uIU/mL (0.358-3.74) H 06/17/25 04:45 Specimen Type Clean catch urine 06/17/25 02:10 Urine Color Pale yellow (YELLOW) 06/17/25 02:10 Urine Appearance Clear (CLEAR) 06/17/25 02:10 Urine pH 5.0 (5.0 - 8.0) 06/17/25 02:10 Ur Specific [place] 1.015 (1.000-1.030) 06/17/25 02:10 Urine Protein 1+ (NEGATIVE) 06/17/25 02:10 Urine Glucose (UA) 4+ (NEGATIVE) 06/17/25 02:10 Urine Ketones Negative (NEGATIVE) 06/17/25 02:10 Urine Blood Negative (NEGATIVE) 06/17/25 02:10 Urine Nitrite Negative (NEGATIVE) 06/17/25 02:10 Urine Bilirubin Negative (NEGATIVE) 06/17/25 02:10 Urine Urobilinogen Normal (NORMAL) 06/17/25 02:10 Ur Leukocyte Esterase Negative (NEGATIVE) 06/17/25 02:10 Urine RBC None seen /HPF (0-3) 06/17/25 02:10 Urine WBC None seen /HPF (0-5) 06/17/25 02:10 Ur Squamous Epith Cells Rare /HPF (NEGATIVE) 06/17/25 02:10 Urine Bacteria Negative /HPF (NEGATIVE) 06/17/25 02:10 Ur Culture Indicated? No/not indicated 06/17/25 02:10 Review of Systems Constitutional: Weakness Eyes: No Symptoms Reported ENT: No Symptoms Reported Respiratory: No Symptoms Reported Cardiovascular: No Symptoms Reported Gastrointestinal: No Symptoms Reported Genitourinary: No Symptoms Reported Musculoskeletal: Other (left arm and leg weakness) Skin: No Symptoms Reported Neurological: Weakness Physical Exam Vital Signs: Vital Signs Temperature 97.7 F Temperature 97.7 F Pulse Rate 52 Pulse Rate 52 Pulse Rate 54 Pulse Rate 52 Pulse Rate 54 Pulse Rate 57 Pulse Rate 54 Pulse Rate 53 Pulse Rate 62 Pulse Rate 50 Pulse Rate 52 Pulse Rate 53 Pulse Rate 52 Pulse Rate 52 Pulse Rate 53 Pulse Rate 54 Pulse Rate 53 Pulse Rate 50 Pulse Rate 51 Pulse Rate 51 Respiratory Rate 15 Respiratory Rate 14 Respiratory Rate 13 Respiratory Rate 14 Respiratory Rate 17 Respiratory Rate 24 Respiratory Rate 17 Respiratory Rate 14 Respiratory Rate 32 Respiratory Rate 17 Respiratory Rate 16 Respiratory Rate 12 Respiratory Rate 17 Respiratory Rate 25 Respiratory Rate 20 Respiratory Rate 31 Respiratory Rate 20 Respiratory Rate 11 Respiratory Rate 15 Respiratory Rate 16 Blood Pressure 169/77 Blood Pressure 169/77 Blood Pressure 171/94 Blood Pressure 170/78 Blood Pressure 168/74 Blood Pressure 179/76 Blood Pressure 172/79 Blood Pressure 163/72 Blood Pressure 166/77 Blood Pressure 180/77 Blood Pressure 159/71 O2 Sat by Pulse Oximetry 93 O2 Sat by Pulse Oximetry 93 O2 Sat by Pulse Oximetry 94 O2 Sat by Pulse Oximetry 97 O2 Sat by Pulse Oximetry 97 O2 Sat by Pulse Oximetry 96 O2 Sat by Pulse Oximetry 92 O2 Sat by Pulse Oximetry 96 O2 Sat by Pulse Oximetry 95 O2 Sat by Pulse Oximetry 96 O2 Sat by Pulse Oximetry 96 O2 Sat by Pulse Oximetry 96 O2 Sat by Pulse Oximetry 94 O2 Sat by Pulse Oximetry 97 O2 Sat by Pulse Oximetry 91 O2 Sat by Pulse Oximetry 96 O2 Sat by Pulse Oximetry 96 O2 Sat by Pulse Oximetry 95 O2 Sat by Pulse Oximetry 95 Oriented: Normal Respiratory: Clear Throughout Cardiovascular: Normal Auscultation: Bowel Sounds: Normal Palpation: Normal Tenderness: Normal Skin: Normal Musculoskeletal: Motor Deficit (LUE and LLE 4/5 strength) Psychiatric: Normal Mood Description: Calm Affect: Normal Speech Pattern: Clear and Appropriate Assessment/Plan (1) Acute left hemiparesis: Status: Acute (2) HTN (hypertension): Qualifiers: Hypertension type: primary hypertension Qualified Code(s): I10 - Essential (primary) hypertension Status: Chronic (3) Uncontrolled diabetes mellitus: Qualifiers: Diabetes mellitus type: type 2 Glycemic state: with hyperglycemia Q ualified Code(s): E11.65 - Type 2 diabetes mellitus with hyperglycemia Status: Chronic (4) Chronic cerebrovascular accident (CVA): Status: Acute (5) HLD (hyperlipidemia): Qualifiers: Hyperlipidemia type: mixed hyperlipidemia Qualified Code(s): E78.2 - Mixed hyperlipidemia Status: Chronic Review H&P Reviewed: Yes Patient was examined?: Yes
[2025-06-17] MEDS: NovoLIN R (or HumuLIN R) SUBCUT PRN (11:47)
[2025-06-17] MEDS: APRESOLINE INJ 20 MG VIAL IVP PRN (13:03)
[2025-06-17] MEDS: MULTIHANCE INJ VIAL IVP ONE (16:42)
[2025-06-17] MEDS ORDERED: TYLENOL 325 MG TAB PO PRN (18:53)
[2025-06-17] MEDS: SNACK - Diabetic Appropriate PO SCH (19:00)
[2025-06-17] MEDS: ULTRAM PO PRN (19:02)
[2025-06-17] MEDS ORDERED: SNACK - Diabetic Appropriate PO SCH (20:00)
[2025-06-17] MEDS: CRESTOR TAB 10 MG PO SCH (20:38)
[2025-06-18 04:17] VITALS: RESP 20
[2025-06-18 05:06] LABS: MEAN PLATELET VOLUME 10.1 fL (7.4-11.0); RED CELL DISTRIBUTION WIDTH 12.8 % (11.6-16.5)
[2025-06-18 05:20] LABS: COR NA(FOR HYPERGLY) 145 mmol/L (136-145); CREATININE 0.93 mg/dL (0.70-1.30); eGFR NON BLACK RACES > 60 (>60)
[2025-06-18] MEDS ORDERED: CONSULT PHARMACY - POTASSIUM & MAGNESIUM XX SCH (07:00)
[2025-06-18 07:49] VITALS: BP 150/75; PULSE 68; TEMP 97.7; O2SAT 95
[2025-06-18] MEDS: K-DUR TAB 20 MEQ PO SCH (08:06)
[2025-06-18] MEDS: PLAVIX PO SCH (08:06)
[2025-06-18] MEDS: ASPIRIN EC 81 MG PO SCH (08:06)
== END 2025-06-18 11:00 | disposition home or self-care (01) ==
LOC: ER 00:02 → ICU 03:32 → INTOOBSV 03:32 → ICU 04:06
PROVIDERS: ADMIT Family Medicine; ATTEND Internal Medicine
DX: R13.10 Dysphagia, unspecified; E78.2 Mixed hyperlipidemia; R20.0 Anesthesia of skin; M62.81 Muscle weakness (generalized); R90.82 White matter disease, unspecified; R06.02 Shortness of breath; R47.01 Aphasia; R27.8 Other lack of coordination; R00.1 Bradycardia, unspecified; H53.8 Other visual disturbances; R94.31 Abnormal electrocardiogram [ECG] [EKG]; R26.81 Unsteadiness on feet; I10 Essential (primary) hypertension; I63.89 Other cerebral infarction; E87.0 Hyperosmolality and hypernatremia; R79.89 Other specified abnormal findings of blood chemistry; Z74.1 Need for assistance with personal care; E11.65 Type 2 diabetes mellitus with hyperglycemia; I69.354 Hemiplegia and hemiparesis following cerebral infarction affecting left non-dominant side; Z59.89 Other problems related to housing and economic circumstances